=== PATIENT | female | born 1970 | race Two or more races ===

== ENCOUNTER 2022-12-03 04:37 | Day surgery (SDC) | payer OTHER ==
[2022-11-28 11:49] VITALS: BMI 23.7
[2022-12-03] MEDS ORDERED: ACETAMINOPHEN 1000 MG/100 ML BAG IVPB ONE ×2 (07:30→12:50)
[2022-12-03] MEDS ORDERED: TRANEXAMIC ACID 1000 MG/10 ML VIAL IVPUSH ONE (07:30)
[2022-12-03] MEDS ORDERED: CEFAZOLIN 2 GM in DEXTROSE 5%-WATER - 100 ML IVPB ONE (07:30)
[2022-12-03] MEDS ORDERED: GABAPENTIN 300 MG CAPSULE PO ONE (07:30)
[2022-12-03] MEDS ORDERED: ONDANSETRON 4 MG/2 ML VIAL IVPUSH PRN (08:25)
[2022-12-03] MEDS ORDERED: PROMETHAZINE HCL 25 MG/1 ML VIAL IVPB PRN (08:25)
[2022-12-03] MEDS ORDERED: LACTATED RINGERS SOLUTION 1,000 ML IV SCH (08:30)
[2022-12-03] MEDS ORDERED: GABAPENTIN 300 MG CAPSULE ONE (09:17)
[2022-12-03] MEDS ORDERED: PROPOFOL 20 ML ONE (09:52)
[2022-12-03] MEDS ORDERED: ROCURONIUM BROMIDE 50 MG/5 ML SYRINGE ONE (09:52)
[2022-12-03] MEDS ORDERED: MIDAZOLAM HCL 2 MG/2 ML SINGLE DOSE VIAL ONE (09:52)
[2022-12-03] MEDS ORDERED: LIDOCAINE HCL/PF 2% SDV 5ML VIAL ONE (09:54)
[2022-12-03] MEDS ORDERED: SODIUM CHLORIDE 0.9% P/F 10 ML VIAL IJ ONE (10:20)
[2022-12-03] MEDS ORDERED: ceFAZolin SODIUM 1 GM VIAL ONE (10:20)
[2022-12-03] MEDS ORDERED: ceFAZolin SODIUM 1 GM VIAL IVPB ONE (10:21)
[2022-12-03] MEDS ORDERED: DEXAMETHASONE SOD PHOSPHATE 4 MG/1 ML VIAL ONE (10:22)
[2022-12-03] MEDS ORDERED: ONDANSETRON 4 MG/2 ML VIAL ONE ×2 (10:22→12:51)
[2022-12-03] MEDS ORDERED: METOCLOPRAMIDE HCL INJECTION 10 MG/2 ML VIAL ONE (10:22)
[2022-12-03] MEDS ORDERED: [UNRECOGNIZED DRUG - OTHER] NR ONE (10:45)
[2022-12-03] MEDS ORDERED: NEOSTIGMINE METHYLSULFATE 0.5 MG/1 ML - 10 ML MDV ONE (12:07)
[2022-12-03] MEDS ORDERED: GLYCOPYRROLATE 0.2 MG/1 ML VIAL ONE (12:07)
[2022-12-03] MEDS ORDERED: oxyCODONE HCL 5 MG TABLET PO PRN (12:48)
[2022-12-03 15:24] VITALS: RESP 18
[2022-12-03 17:08] VITALS: BP 146/78; PULSE 84; TEMP 98.3
== END 2022-12-03 19:34 | disposition home or self-care (01) ==
LOC: JASU-SURG 04:37
PROVIDERS: ATTEND Specialist
PROC: 0USG0ZZ Reposition Vagina, Open Approach (ICD-10-PCS; 2022-12-03)
PROC: 8E0W0CZ Robotic Assisted Procedure of Trunk Region, Open Approach (ICD-10-PCS; 2022-12-03)
PROC: 0UT9FZZ Resection of Uterus, Via Natural or Artificial Opening With Percutaneous Endoscopic Assistance (ICD-10-PCS; 2022-12-03)
PROC: 0UT7FZZ Resection of Bilateral Fallopian Tubes, Via Natural or Artificial Opening With Percutaneous Endoscopic Assistance (ICD-10-PCS; 2022-12-03)
PROC: 8E0W4CZ Robotic Assisted Procedure of Trunk Region, Percutaneous Endoscopic Approach (ICD-10-PCS; 2022-12-03)
PROC: 0JQC0ZZ Repair Pelvic Region Subcutaneous Tissue and Fascia, Open Approach (ICD-10-PCS; principal; 2022-12-03 10:00)
DX: D25.1 Intramural leiomyoma of uterus (principal); N81.5 Vaginal enterocele; N72 Inflammatory disease of cervix uteri; Z85.3 Personal history of malignant neoplasm of breast; Z80.3 Family history of malignant neoplasm of breast
CPT/HCPCS: 81025; 88104; 88302-TC; 88305-TC; 88307-TC; 88341-TC; 88342-TC; 94760